=== PATIENT | female | born 1995 | race Caucasian/White ===

== ENCOUNTER → 2020-01-24 | Outpatient (CLI) | payer MEDICAID ==
[2020-01-24 16:02] LABS: HEMOGLOBIN 13.8 G/DL (11.5-16.0); MEAN PLATELET VOLUME 9.1 FL (7.4-10.4); RED CELL DISTRIBUTION WIDTH 12.7 % (10.0-14.5); WHITE BLOOD COUNT 10.9 10^3/uL (4.3-11.0)
[2020-01-24 16:17] LABS: CARBON DIOXIDE 25 MMOL/L (21-32); CHLORIDE 104 MMOL/L (98-107); POTASSIUM 4.1 MMOL/L (3.6-5.0); SODIUM 142 MMOL/L (135-145)
[2020-01-24 16:18] LABS: ALANINE AMINOTRANSFERASE 57 U/L (0-55); ALBUMIN 4.2 GM/DL (3.2-4.5); ALKALINE PHOSPHATASE 51 U/L (40-136); BILIRUBIN,TOTAL 0.8 MG/DL (0.1-1.0); BUN/CREATININE RATIO 11; CALCIUM 9.4 MG/DL (8.5-10.1); GFR ESTIMATED > 60; GLUCOSE 110 MG/DL (70-105); TOTAL PROTEIN 6.8 GM/DL (6.4-8.2)
[2020-01-25 10:47] LABS: FREE T4 (FREE THYROXINE) 0.96 NG/DL (0.70-1.48)
== END ==
LOC: RAD FS 15:24
PROVIDERS: ATTEND Family Medicine
DX: M25.541 Pain in joints of right hand (principal); R53.82 Chronic fatigue, unspecified; Z83.3 Family history of diabetes mellitus
CPT/HCPCS: 36415; 80053; 82607; 83036; 84439; 84443; 84480; 85027; 86038

== ENCOUNTER 2023-04-08 20:23 | Emergency (ER) | payer MEDICAID ==
[~2023-04-08] VITALS: Ht 155 cm; Wt 108.4 kg
[2023-04-08 20:33] VITALS: BP 135/60
--- NOTE | 2023-04-08 21:02 | ED General ---
General Stated Complaint: FEVER FOR WEEKS,SYNCOPE TODAY Source of Information: Patient Exam Limitations: No Limitations History of Present Illness Date Seen by Provider: Apr 08, 2023 Time Seen by Provider: 20:47 Initial Comments 27-year-old female presents to the emergency department today for generally feeling unwell since Thursday, 3 days now. Symptoms include body aches chills and intermittent fevers. No cough, chest pain, abdominal pain. She has nausea without any vomiting. No urinary symptoms. She denies . States she got up from a chair too fast and had a syncopal episode today which was her main concern. She has increased her fluids during her illness and is tolerating this without difficulty. All other systems reviewed and negative except documented per HPI. Voice recognition software was used to help create this chart Allergies and Home Medications Patient Home Medication List Home Medication List Reviewed: Yes Review of Systems Review of Systems Constitutional: see HPI Past Iziwyea-Jwfucz-Dkoebl Hx Patient Social History Tobacco Use?: No Use of E-Cig and/or Vaping dev: No Substance use?: No Alcohol Use?: No Physical Exam Vital Signs Capillary Refill : Height, Weight, BMI Height: '" Weight: lbs. oz. kg; BMI Method: General Appearance: No Apparent Distress, WD/WN Eyes: Bilateral Eye Normal Inspection, Bilateral Eye PERRL, Bilateral Eye EOMI HEENT: Normal ENT Inspection, Pharynx Normal Neck: Full Range of Motion, Normal Inspection, Non Tender, Supple Respiratory: Chest Non Tender, Lungs Clear, Normal Breath Sounds, No Accessory Muscle Use, No Respiratory Distress Cardiovascular: No Murmur, Tachycardia (Mild tachycardia) Gastrointestinal: Normal Bowel Sounds, No Organomegaly, Non Tender, Soft Extremity: Normal Capillary Refill, Normal Inspection, Non Tender, No Calf Tenderness Neurologic/Psychiatric: Alert, Oriented x3, No Motor/Sensory Deficits Skin: Normal Color, Warm/Dry Progress/Results/Core Measures Suspected Sepsis SIRS Temperature: Pulse: Respiratory Rate: Blood Pressure / Mean: Results/Orders My Orders Orders - NIKHIL SIMON DO Ekg Tracing (04/08/23 20:57) Vital Signs/I&O Capillary Refill : ECG Comment sinus rat 99bpm. Normal intervals. Normal axis. No ST or T wave abnormalities. No ectopy. No STEMI. Departure Communication (Admissions) Patient is hemodynamically stable severe mild tachycardia. She is tolerating p.o., drinking quite a bit of Powerade during her conversation on my bedside. She has no vomiting. She was seen at urgent care yesterday and had a COVID test at that time which was reportedly negative. She is otherwise nontoxic in appearance with a benign exam. This is likely a viral illness. We will go ahead and get an EKG due to her syncopal episode today but this is likely vasovagal. Advise increase fluids and rest. Plan for discharge after EKG reviewed if normal. Impression Primary Impression: Viral illness Additional Impression: Syncope Qualified Codes: R55 - Syncope and collapse Disposition: HOME, SELF-CARE Condition: Stable Departure-Patient Inst. Referrals: MELINDA UREÑA MD (PCP/Family) Primary Care Physician Patient Instructions: Viral Syndrome (DC) Add. Discharge Instructions: Increase your fluids at home, rest. Use ibuprofen and Tylenol for body aches, fevers. Your symptoms are likely from a virus. They will likely resolve in the next 5 to 7 days. Be careful going from lying to sitting or sitting to standing too quickly, especially while you are sick. Return to the emergency department for any severe concerns. Follow-up your primary doctor for any nonemergent needs. NIKHIL SIMON DO Apr 08, 2023 21:02
== END 2023-04-08 21:23 | disposition home or self-care (01) ==
LOC: EDUNIT# 20:23 → ER FS 20:24
DX: B34.9 Viral infection, unspecified (principal); R55 Syncope and collapse
CPT/HCPCS: 93005